=== PATIENT | female | born 1965 | race Caucasian/White ===

== ENCOUNTER 2017-07-17 06:31 | Day surgery (SDC) | payer OTHER, SELFPAY ==
[2017-07-17] VITALS (7 sets, daily range): BP systolic 94–110; BP diastolic 47–72; PULSE 52–74; RESP 14–16; TEMP 36.1–36.4; O2SAT 95–100; BMI 26.4
--- NOTE | 2017-07-17 | EGD_PTH ---
PATIENT: JOHNNIE VANCE LOC: EN U#:[id number] AGE/SX: 52/F ROOM: RE07/17/[address]: Dr. Tushar Guzmán MD : [id number] BED: DIS: 07/17/2017 SPEC #: [id number] RECD: 07/17/17 13:32 STATUS: ADELA DANIELLE #: [id number] ISATU: 07/17/17 00:[address]: Tushar Guzmán DEPT: SURGICAL PATHOLOGY RECD BY: Jarad Hagan ENTERED: 07/17/17 13:41 SP TYPE: EGD BIOPSY OTHR DR: Out of Town Doctor Tissues: A - Duodenum, NOS B - Esophageal mucous membrane C - COLON BIOPSY Procedures: Special Stain Group II Surgery Specimen Level IV Alcian Blue/PAS (control) HEADER OPERATION: EGD with biopsy and colonoscopy PRE-OP DIAGNOSIS: Reflux esophagitis, bowel habit change TISSUE SUBMITTED: A ? Duodenum biopsy, B ? Esophageal biopsy, C ? Random colon biopsy MICROSCOPIC DIAGNOSIS A. Duodenum, biopsy: Fragments of small intestinal mucosa, no pathologic diagnosis. B. Esophageal biopsy: Fragment of gastroesophageal mucosa with mild chronic inflammation. Intestinal metaplasia (goblet cell metaplasia) is not identified. See comment. C. Colon, random biopsy: Fragments of colonic mucosa, no pathologic diagnosis. SJ:rg 07/18/17 COMMENT B. Alcian blue/PAS stain with matched control is used in the evaluation of the specimen. MICROSCOPIC DESCRIPTION Slides are reviewed. GROSS DESCRIPTION A - Received in fixative is one container labeled with the patient's name and designated duodenum biopsy. The specimen consists of two irregular fragments of light alston soft tissue that in aggregate measure 0.6 x 0.3 x 0.1 cm. The specimen is totally submitted in one cassette. B - Received in fixative is one container labeled with the patient's name and designated esophageal biopsy. The specimen consists of one irregular fragment of light alston soft tissue that measures 0.3 x 0.3 x 0.1 cm. The specimen is totally submitted in one cassette. C - Received in fixative is one container labeled with the patient's name and designated random colonic biopsy. The specimen consists of multiple irregular fragments of light alston soft tissue that in aggregate measure 1.5 x 1 x 0.1 cm. The specimen is totally submitted in one cassette. / [place]:flo 07/17/17 TC:3 CPT: 80931 x3, 25861
--- NOTE | 2017-07-17 07:46 | PCM.OPRPT ---
Problem List (1) Gastro-esophageal reflux disease with esophagitis Status: Acute (2) Change in bowel habits Status: Acute Report of Operation Date of Procedure: 07/17/17 Pre-Operative Diagnosis: k21.0 gastroesophageal reflux disease with esophagitis. k19.4 change in bowel habits Post-Operative Diagnosis: Same Surgery/Procedure Performed:: 51065 esophagogastroduodenoscopy with biopsies. 06884 colonoscopy with biopsies Type of Anesthesia:: MAC Anesthesiologist: Pavan Jaimes Description of Procedure: Patient was brought into the endoscopy suite. Back of her throat was sprayed with benzocaine spray. A bite-block was placed. She was placed in the left lateral decubitus position. She was given graded anesthesia. Scope was inserted into the back of the oropharynx and directed down through the esophagus into the stomach and then into the duodenum without difficulty. Operative findings: 1. Duodenum: Normal appearance some slight erythema no mass lesions biopsy for celiac sprue was obtained. 2. Stomach: Normal appearance no mass lesions minimal erythema was identified biopsy for H. pylori was obtained. 3. Esophagus: Small area of esophagitis was identified this was biopsied to check to make sure there was no dysplasia or signs of Alvarenga's it measured approximately 1 cm in size. Based upon its description from her previous endoscopy it looks probably the same. The colonoscope was inserted into the rectum. It was directed through the sigmoid colon, descending colon, transverse colon, ascending colon, to the cecum. Operative findings: 1. Cecum: Normal ileocecal valve no mass lesions. 2. Ascending colon: Normal appearance no mass lesions. 3. Transverse colon: Normal appearance no mass lesions. 4. Descending colon: Normal appearance no mass lesions. 5. Sigmoid colon: Normal appearance no mass lesions. 6. Rectum: Normal appearance no mass lesions. Random colonic biopsies were performed through the cecum all the way to the rectum. The mucosal all look normal there is no signs of colitis there is no erythema. Scope was withdrawn digital rectal exam showed no masses within her anus. She will need another colonoscopy in 10 years. - Admit VTE Documentation VTE Present on Admission: No VTE Mechan Device Prophylaxis: None VTE Pharm Prophylaxis ordered?: No Reason prophylaxis not ordered:: Treatment Not Indicated
== END 2017-07-17 08:31 | disposition home or self-care (01) ==
LOC: EN 06:32 → AC 06:34
PROVIDERS: Visit Provider Surgery
PROC: 0DJD8ZZ Inspection of Lower Intestinal Tract, Via Natural or Artificial Opening Endoscopic (ICD-10-PCS; CPT 45378; principal; 2017-07-17 07:25)
DX: K21.0 Gastro-esophageal reflux disease with esophagitis (principal); R19.4 Change in bowel habit
CPT/HCPCS: 43239; 45380; 88305; 88313; J7120